=== PATIENT | male | born 1960 | race Caucasian/White ===

== ENCOUNTER 2020-05-17 20:22 | Inpatient (IN) | payer OTHER ==
[~2020-05-17] VITALS: Ht 193 cm; Wt 96.2 kg
[~2020-05-17 20:22] MED LIST: CARVEDILOL12.5 MG PO; CRESTOR10 MG PO; DIOVAN160 MG PO; ELIQUIS2.5 MG PO; JANUVIA100 MG PO; LEVOFLOXACIN250 MG PO; METFORMIN HCL500 M2 PO; METRONIDAZOLE500 MG PO; VRAYLAR1.5 MG PO
[2020-05-17] MEDS ORDERED: ONDANSETRON HCL INJ 2MG/ML 2ML 2 MG/ML VIAL IV STA (20:44)
[2020-05-17] MEDS ORDERED: HYDROMORPHONE 1MG/1ML INJ IV STA (20:44)
[2020-05-17 21:11] LABS: BASOPHILS # (AUTO) 0.1 (0.0-0.1); BASOPHILS % 0.6 % (0.0-1.0); EOSINOPHILS % 0.1 % (0.0-6.0); LYMPHOCYTES # (AUTO) 1.6 (1.0-3.2); LYMPHOCYTES % 19.7 % (18.0-39.1); MEAN CORPUSCULAR HEMOGLOBIN 29.5 pg (28-32); MEAN CORPUSCULAR HGB CONC 34.1 g/dL (31-35); MEAN CORPUSCULAR VOLUME 86.5 fL (81-99); MONOCYTES # (AUTO) 0.8 (0.2-0.8); MONOCYTES % 9.3 % (4.4-11.3); NEUTROPHILS # (AUTO) 5.7 (2.1-6.9); NEUTROPHILS % 69.9 % (38.7-80.0); PLATELET COUNT 232 x10e3/uL (140-360); RED BLOOD COUNT 4.74 x10e6/uL (4.3-5.7); RED CELL DISTRIBUTION WIDTH 12.2 % (11.7-14.4)
[2020-05-17 21:12] LABS: CLARITY,URINE SL CLOUDY (CLEAR); COLOR,URINE AMBER (YELLOW); KETONES,URINE 1+ (NEGATIVE); LEUKOCYTE ESTERASE ,URINE NEGATIVE (NEGATIVE); NITRITE,URINE NEGATIVE (NEGATIVE); PROTEIN,URINE DIPSTICK 2+ (NEGATIVE); URINE UROBILINOGEN 0.2 mg/dL (0.2 - 1)
[2020-05-17 21:19] LABS: INR 1.04; PROTHROMBIN TIME 14.2 seconds (11.9-14.5)
[2020-05-17 21:20] LABS: PARTIAL THROMBOPLASTIN TIME 37.2 seconds (23.8-35.5)
[2020-05-17 21:23] LABS: AMORPHOUS SEDIMENT,URINE FEW (FEW); BACTERIA,URINE MODERATE /HPF; WBC,URINE (MAN) 0-5 /HPF (0-5)
[2020-05-17 21:27] LABS: AMYLASE 82 U/L (25-125); LIPASE 90 U/L (8-78)
[2020-05-17 21:30] LABS: ALANINE AMINOTRANSFERASE 27 IU/L (0-55); ALBUMIN 3.8 g/dL (3.5-5.0); ALKALINE PHOSPHATASE 59 IU/L (40-150); ANION GAP 16.6 mmol/L (8-16); BLOOD UREA NITROGEN 13 mg/dL (7-26); BUN/CREATININE RATIO 12 (6-25); CALCIUM 8.7 mg/dL (8.4-10.2); CARBON DIOXIDE 22 mmol/L (22-29); CHLORIDE 101 mmol/L (98-107); CREATINE KINASE 41 IU/L (30-200); CREATININE, SERUM 1.13 mg/dL (0.72-1.25); EST GLOMERULAR FILTRATION RATE > 60 ML/MIN (60-); GLUCOSE 168 mg/dL (74-118); POTASSIUM 3.6 mmol/L (3.5-5.1); SODIUM 136 mmol/L (136-145)
[2020-05-17] MEDS ORDERED: SODIUM CHLORIDE 0.9% 50ML 50 ML ONE (21:51)
[2020-05-17] MEDS ORDERED: IOPAMIDOL 370 MG/ML 200 ML INFUS..BTL INJ ONE (21:51)
[2020-05-17] MEDS ORDERED: MORPHINE SULFATE INJ 4 MG/ML INJ 1ML IV PRN (23:15)
[2020-05-17] MEDS: LEVOFLOXACIN 500MG/D5W 100ML IV SCH (23:58)
[2020-05-18] VITALS (8 sets, daily range): BP systolic 102–134; BP diastolic 74–90
[2020-05-18] MEDS: LEVOFLOXACIN 500MG/D5W 100ML IV SCH (00:15)
[2020-05-18] MEDS: METRONIDAZOLE 500MG/NS 100ML 100 ML IV SCH ×6 (02:46→23:59)
[2020-05-18 07:02] LABS: BASOPHILS # (AUTO) 0.1 (0.0-0.1); BASOPHILS % 0.7 % (0.0-1.0); EOSINOPHILS # (AUTO) 0.1 (0.0-0.4); EOSINOPHILS % 0.7 % (0.0-6.0); HEMATOCRIT 38.5 % (38.2-49.6); HEMOGLOBIN 13.5 g/dL (14.0-18.0); LYMPHOCYTES # (AUTO) 1.6 (1.0-3.2); LYMPHOCYTES % 20.7 % (18.0-39.1); MEAN CORPUSCULAR HEMOGLOBIN 30.3 pg (28-32); MEAN CORPUSCULAR HGB CONC 35.1 g/dL (31-35); MEAN CORPUSCULAR VOLUME 86.3 fL (81-99); MONOCYTES % 12.7 % (4.4-11.3); NEUTROPHILS # (AUTO) 4.9 (2.1-6.9); NEUTROPHILS % 64.9 % (38.7-80.0); PLATELET COUNT 205 x10e3/uL (140-360); RED BLOOD COUNT 4.46 x10e6/uL (4.3-5.7); RED CELL DISTRIBUTION WIDTH 12.2 % (11.7-14.4)
[2020-05-18 07:22] LABS: ALANINE AMINOTRANSFERASE 24 IU/L (0-55); ALBUMIN 3.5 g/dL (3.5-5.0); ALBUMIN/GLOBULIN RATIO 1.1 (0.8-2.0); ALKALINE PHOSPHATASE 55 IU/L (40-150); ANION GAP 13.6 mmol/L (8-16); BLOOD UREA NITROGEN 15 mg/dL (7-26); BUN/CREATININE RATIO 15 (6-25); CALCIUM 8.3 mg/dL (8.4-10.2); CARBON DIOXIDE 24 mmol/L (22-29); CHLORIDE 103 mmol/L (98-107); CREATININE, SERUM 0.98 mg/dL (0.72-1.25); EST GLOMERULAR FILTRATION RATE > 60 ML/MIN (60-); GLUCOSE 157 mg/dL (74-118); POTASSIUM 3.6 mmol/L (3.5-5.1); SODIUM 137 mmol/L (136-145)
[2020-05-18] MEDS: HYDROMORPHONE 1MG/1ML INJ IV PRN ×5 (07:36→23:36)
[2020-05-18] MEDS: ONDANSETRON HCL INJ 2MG/ML 2ML 2 MG/ML VIAL IV PRN ×5 (07:36→23:36)
[2020-05-18] MEDS ORDERED: SODIUM CHLORIDE 0.9% 250ML 250 ML ONE (11:20)
[2020-05-18] MEDS ORDERED: LEVOFLOXACIN 500MG/D5W 100ML IV ONE (23:15)
[2020-05-19] VITALS (8 sets, daily range): BP systolic 105–127; BP diastolic 63–85
[2020-05-19] MEDS: ONDANSETRON HCL INJ 2MG/ML 2ML 2 MG/ML VIAL IV PRN ×4 (03:54→23:40)
[2020-05-19] MEDS: HYDROMORPHONE 1MG/1ML INJ IV PRN ×4 (03:54→20:22)
[2020-05-19] MEDS: METRONIDAZOLE 500MG/NS 100ML 100 ML IV SCH ×3 (05:59→18:00)
[2020-05-19 06:12] LABS: % IRON SATURATION 11 % (15-50); IRON 26 ug/dL (65-175); TOTAL IRON BINDING CAPACITY 242 ug/dL (261-478); TRANSFERRIN 173 mg/dL (174-364)
[2020-05-19] MEDS: LEVOFLOXACIN 500MG/D5W 100ML IV SCH (23:00)
[2020-05-20] VITALS (8 sets, daily range): BP systolic 120–154; BP diastolic 70–97
[2020-05-20] MEDS: HYDROMORPHONE 1MG/1ML INJ IV PRN ×2 (00:55→05:15)
[2020-05-20] MEDS: METRONIDAZOLE 500MG/NS 100ML 100 ML IV SCH ×4 (05:45→17:20)
[2020-05-20 05:48] LABS: BASOPHILS % 0.7 % (0.0-1.0); EOSINOPHILS # (AUTO) 0.2 (0.0-0.4); EOSINOPHILS % 3.3 % (0.0-6.0); HEMATOCRIT 34.5 % (38.2-49.6); LYMPHOCYTES # (AUTO) 1.5 (1.0-3.2); LYMPHOCYTES % 33.9 % (18.0-39.1); MEAN CORPUSCULAR HEMOGLOBIN 29.8 pg (28-32); MEAN CORPUSCULAR HGB CONC 34.8 g/dL (31-35); MEAN CORPUSCULAR VOLUME 85.6 fL (81-99); MONOCYTES # (AUTO) 0.8 (0.2-0.8); MONOCYTES % 16.9 % (4.4-11.3); PLATELET COUNT 214 x10e3/uL (140-360); RED BLOOD COUNT 4.03 x10e6/uL (4.3-5.7); RED CELL DISTRIBUTION WIDTH 11.9 % (11.7-14.4)
[2020-05-20 06:19] LABS: ANION GAP 9.4 mmol/L (8-16); BLOOD UREA NITROGEN 10 mg/dL (7-26); BUN/CREATININE RATIO 13 (6-25); CALCIUM 8.2 mg/dL (8.4-10.2); CARBON DIOXIDE 28 mmol/L (22-29); CHLORIDE 104 mmol/L (98-107); EST GLOMERULAR FILTRATION RATE > 60 ML/MIN (60-); GLUCOSE 148 mg/dL (74-118); POTASSIUM 3.4 mmol/L (3.5-5.1); SODIUM 138 mmol/L (136-145)
[2020-05-20] MEDS ORDERED: BISACODYL 10 MG SUPP PR PRN (09:00)
[2020-05-20] MEDS: IRON SUCROSE 100 MG in SODIUM CHLORIDE 0.9% 100 ML 100 ML IV SCH (09:00)
[2020-05-20] MEDS: ACETAMINOPHEN 325 MG TAB PO PRN (09:50)
[2020-05-20] MEDS: LEVOFLOXACIN 500MG/D5W 100ML IV SCH (23:00)
[2020-05-21] VITALS: BP 141/79
[2020-05-21 04:00] VITALS: BP 175/99
[2020-05-21] MEDS: CARVEDILOL 12.5 MG TAB PO SCH ×2 (06:00→16:16)
[2020-05-21] MEDS ORDERED: MAGNESIUM HYDROXIDE 30 ML UDC PO ONE (06:00)
[2020-05-21] MEDS: VALSARTAN 160 MG TAB PO SCH (06:00)
[2020-05-21] MEDS: METRONIDAZOLE 500MG/NS 100ML 100 ML IV SCH ×5 (06:00→23:59)
[2020-05-21 07:32] VITALS: BP 161/99
[2020-05-21] MEDS: IRON SUCROSE 100 MG in SODIUM CHLORIDE 0.9% 100 ML 100 ML IV SCH (10:24)
[2020-05-21] MEDS ORDERED: POTASSIUM CHLORIDE 20 MEQ TAB CR PO NR (10:45)
[2020-05-21 11:00] VITALS: BP 169/96
[2020-05-21] MEDS ORDERED: ASPIRIN 81 MG CHEW TAB PO NR (11:15)
[2020-05-21 16:00] VITALS: BP 149/85
[2020-05-21 20:00] VITALS: BP 138/82
[2020-05-21] MEDS ORDERED: ATORVASTATIN 20 MG TAB PO SCH (21:00)
[2020-05-21] MEDS: LEVOFLOXACIN 500MG/D5W 100ML IV SCH (22:34)
[2020-05-22] VITALS: BP 165/93
[2020-05-22 04:00] VITALS: BP 141/84
[2020-05-22 06:01] LABS: BASOPHILS % 0.6 % (0.0-1.0); EOSINOPHILS # (AUTO) 0.3 (0.0-0.4); EOSINOPHILS % 5.1 % (0.0-6.0); HEMATOCRIT 35.8 % (38.2-49.6); HEMOGLOBIN 12.3 g/dL (14.0-18.0); LYMPHOCYTES # (AUTO) 1.9 (1.0-3.2); LYMPHOCYTES % 29.8 % (18.0-39.1); MEAN CORPUSCULAR HEMOGLOBIN 29.5 pg (28-32); MEAN CORPUSCULAR HGB CONC 34.4 g/dL (31-35); MEAN CORPUSCULAR VOLUME 85.9 fL (81-99); MONOCYTES # (AUTO) 0.7 (0.2-0.8); MONOCYTES % 11.1 % (4.4-11.3); NEUTROPHILS # (AUTO) 3.4 (2.1-6.9); NEUTROPHILS % 52.9 % (38.7-80.0); PLATELET COUNT 274 x10e3/uL (140-360); RED BLOOD COUNT 4.17 x10e6/uL (4.3-5.7)
[2020-05-22 06:27] LABS: ALANINE AMINOTRANSFERASE 26 IU/L (0-55); ALBUMIN 3.3 g/dL (3.5-5.0); ALBUMIN/GLOBULIN RATIO 1.1 (0.8-2.0); ALKALINE PHOSPHATASE 64 IU/L (40-150); ANION GAP 14.5 mmol/L (8-16); BLOOD UREA NITROGEN 7 mg/dL (7-26); BUN/CREATININE RATIO 9 (6-25); CALCIUM 8.3 mg/dL (8.4-10.2); CALCIUM IONIZED 1.1 mmol/L (1.09-1.30); CARBON DIOXIDE 24 mmol/L (22-29); CHLORIDE 109 mmol/L (98-107); CREATININE, SERUM 0.76 mg/dL (0.72-1.25); EST GLOMERULAR FILTRATION RATE > 60 ML/MIN (60-); GLUCOSE 145 mg/dL (74-118); POTASSIUM 3.5 mmol/L (3.5-5.1); SODIUM 144 mmol/L (136-145)
[2020-05-22] MEDS: METRONIDAZOLE 500MG/NS 100ML 100 ML IV SCH ×2 (06:49→12:53)
[2020-05-22 06:51] LABS: CHOL/HDL RATIO 3.8 (3.9-4.7)
[2020-05-22 07:13] LABS: THYROID STIMULATING HORMONE 0.429 uIU/mL (0.350-4.940)
[2020-05-22 08:39] VITALS: BP 141/83
[2020-05-22] MEDS ORDERED: POTASSIUM CHLORIDE 20 MEQ TAB CR PO STA (08:39)
[2020-05-22] MEDS ORDERED: ASPIRIN 81 MG CHEW TAB PO SCH (09:00)
[2020-05-22] MEDS: CARVEDILOL 12.5 MG TAB PO SCH (09:03)
[2020-05-22] MEDS: VALSARTAN 160 MG TAB PO SCH (09:03)
[2020-05-22] MEDS: ACETAMINOPHEN 325 MG TAB PO PRN (09:10)
[2020-05-22] MEDS: IRON SUCROSE 100 MG in SODIUM CHLORIDE 0.9% 100 ML 100 ML IV SCH (09:45)
[2020-05-22 11:52] VITALS: BP 143/87
[2020-05-22 12:11] VITALS: BP 141/83
[2020-05-22] MEDS ORDERED: LEVOFLOXACIN250 MG PO (14:03)
[2020-05-22] MEDS ORDERED: ASPIRIN CHEW81 MG PO (14:03)
[2020-05-22] MEDS ORDERED: METRONIDAZOLE250 MG PO (14:03)
[2020-05-22] MEDS ORDERED: FERROUS SULFAT325 MG PO (14:03)
== END 2020-05-22 14:29 | disposition home or self-care (01) | DRG 392 ==
LOC: ER 20:31 → ERHOLD 23:00 → IMCU 05-18 00:04 → OBSVTOIN 05-18 12:39 → ICU 05-21 08:37 → MED/SURG 05-21 17:00
DX: K57.30 Diverticulosis of large intestine without perforation or abscess without bleeding (principal); I69.354 Hemiplegia and hemiparesis following cerebral infarction affecting left non-dominant side; I10 Essential (primary) hypertension; E11.9 Type 2 diabetes mellitus without complications; I25.10 Atherosclerotic heart disease of native coronary artery without angina pectoris; I25.2 Old myocardial infarction; E78.5 Hyperlipidemia, unspecified; Z88.5 Allergy status to narcotic agent; Z88.8 Allergy status to other drugs, medicaments and biological substances; H54.61 Unqualified visual loss, right eye, normal vision left eye; H53.47 Heteronymous bilateral field defects; D50.9 Iron deficiency anemia, unspecified; K59.00 Constipation, unspecified; Z79.82 Long term (current) use of aspirin; Z79.84 Long term (current) use of oral hypoglycemic drugs
CPT/HCPCS: 36415; 70450; 70551; 74177; 80048; 80053; 80061; 81001; 82150; 82550; 82553; 82746; 82948; 83036; 83540; 83690; 83735; 84443; 84466; 84484; 85025; 85045; 85610; 85730; 93005; 93306; 99251; 99284; G0378; J1170; J1756; J1956; J2405; J7050; Q9967; U0002